=== PATIENT | female | born 1940 | race Caucasian/White ===

== ENCOUNTER 2020-12-07 16:54 | Inpatient (IN) | payer MEDICARE, BC ==
[~2020-12-07] VITALS: Ht 160 cm; Wt 65.9 kg
[~2020-12-07 16:54] MED LIST: ESCI20TA PO; RALO60TA PO
--- NOTE | 2020-12-07 21:00 | NUR ---
Received a 80 yr old female from [facility] with an admitting diagnosis of left hip fracture/left clavicle fracture. Patient S/P Left hip IM nailing on 12/[address] Vyas. AAOx1-2 Confused and disoriented. Doesnt follow commands, patient redirected. On fall precautions. Patient with bilateral wrist restraints.Patient very restless upon arrival. Trying to pull evangelista catheter. BP 185/82 HR 93 Resp 20 Temp 98 pulse ox 99% on 2L via nasal cannula. Dr Huerta made aware of patient's admission and did the med recon. Hydralazine 25 mg po given as order. Will monitor patient's BP. left hip incision with lizz intact. Patient has bruised noted on left thigh. Kept comfortable. Needs attended. Siderails up for safety.
[2020-12-07] MEDS ORDERED: NITR-104 PO (22:15)
[2020-12-07] MEDS ORDERED: HYDR-3980 PO (22:15)
[2020-12-07] MEDS ORDERED: DIVA250T4 PO (22:15)
[2020-12-07] MEDS ORDERED: MAGN400O6 PO (22:15)
[2020-12-07] MEDS ORDERED: QUET50TA PO (22:15)
[2020-12-07] MEDS ORDERED: ACET-2154 PO (22:15)
[2020-12-07] MEDS ORDERED: LEVO25TA9 PO (22:15)
[2020-12-07] MEDS ORDERED: ENOX40DI SQ (22:15)
[2020-12-07] MEDS ORDERED: MAG355OR18 PO (22:15)
[2020-12-07] MEDS ORDERED: METO-358 PO (22:15)
[2020-12-07] MEDS ORDERED: LACT-246 PO (22:15)
[2020-12-07] MEDS ORDERED: CHOL10002 PO (22:15)
[2020-12-07] MEDS ORDERED: HYDROCODONE/APAP 10-325 MG TABLET PO PRN (23:00)
[2020-12-07] MEDS ORDERED: ACETAMINOPHEN 325 MG TABLET PO PRN (23:00)
[2020-12-07 23:19] VITALS: BP 185/82
[2020-12-07] MEDS ORDERED: hydrALAZINE HCL 25 MG TABLET PO ONE (23:30)
[2020-12-07] MEDS ORDERED: hydrALAZINE HCL 25 MG TABLET PO SCH (23:30)
[2020-12-08 04:22] VITALS: BP 126/81
--- NOTE | 2020-12-08 06:36 | NUR ---
End of shift notes: Slept well during the night. No acute distress noted. Bilateral wrists restraints intact, patient confused. Incontinent of BM x1 Kept clean and dry. Latest BP 125/62 Needs attended. Fall precautions maintained. Siderails up for safety.
[2020-12-08 08:00] VITALS: BP 150/60
[2020-12-08] MEDS: NITROFURANTOIN/NITROFURAN MAC 100 MG CAPSULE PO SCH ×2 (08:12→20:21)
[2020-12-08] MEDS: CHOLECALCIFEROL 1,000 UNIT TABLET PO SCH (08:12)
[2020-12-08] MEDS: QUETIAPINE FUMARATE 25 MG TABLET PO SCH ×2 (08:12→17:46)
[2020-12-08] MEDS: LEVOTHYROXINE SODIUM 25 MCG TABLET PO SCH (08:13)
[2020-12-08] MEDS: DIVALPROEX 250 MG TABLET.DR PO SCH ×2 (08:13→17:46)
[2020-12-08] MEDS: ENOXAPARIN SODIUM 40 MG/0.4 ML DISP.SYRIN SQ SCH (08:14)
[2020-12-08] MEDS: METOPROLOL SUCCINATE XL 50 MG TAB.SR.24H PO SCH ×2 (08:17→17:47)
--- NOTE | 2020-12-08 10:13 | NUR ---
Discontinued acute medical restraint, will continue to monitor
--- NOTE | 2020-12-08 14:57 | NUR ---
INTERDISCIPLINARY TEAM CONFERENCE
[2020-12-08 16:16] VITALS: BP 125/88
[2020-12-08] MEDS: ACETAMINOPHEN 325 MG TABLET PO SCH (17:46)
--- NOTE | 2020-12-08 18:03 | NUR ---
evangelista catheter discontinued as ordered by dr east, patient is in bed, calm, comfortable, no behavior issues noted, left leg incision site is dry and clean, changed dressing, no drainage noted, patient left thigh is purplish discolored, left arm is in sling, kept comfortable.
[2020-12-08 20:04] VITALS: BP 101/58
--- NOTE | 2020-12-08 20:58 | NUR ---
Awake alert and oriented x1-2 Confused and disoriented. VSS. Needs attended. Patient incontinent of urine, Kept clean and dry. All due meds given without difficulty.No distress noted. Will monitor patient.
[2020-12-09 04:30] VITALS: BP 141/73
--- NOTE | 2020-12-09 05:31 | NUR ---
End of shift notes: Slept well at long intervals. Patient incontinent pf urine. Kept clean and dry. No signs of agitation or restlessness. Bed alarm on. Will monitor patient. On continous 2L via nasal cannula. pulse 0x 97%. Kept comfortable.
[2020-12-09 07:44] VITALS: BP 126/83
[2020-12-09] MEDS: METOPROLOL SUCCINATE XL 50 MG TAB.SR.24H PO SCH ×2 (08:31→16:30)
[2020-12-09] MEDS: DIVALPROEX 250 MG TABLET.DR PO SCH (08:32)
[2020-12-09] MEDS: CHOLECALCIFEROL 1,000 UNIT TABLET PO SCH (08:32)
[2020-12-09] MEDS: QUETIAPINE FUMARATE 25 MG TABLET PO SCH ×2 (08:32→16:29)
[2020-12-09] MEDS: NITROFURANTOIN/NITROFURAN MAC 100 MG CAPSULE PO SCH ×2 (08:32→21:04)
[2020-12-09] MEDS: LEVOTHYROXINE SODIUM 25 MCG TABLET PO SCH (08:32)
[2020-12-09] MEDS: ACETAMINOPHEN 325 MG TABLET PO SCH ×3 (08:32→16:29)
[2020-12-09] MEDS: ENOXAPARIN SODIUM 40 MG/0.4 ML DISP.SYRIN SQ SCH (08:33)
[2020-12-09 15:31] VITALS: BP 121/74
[2020-12-09] MEDS ORDERED: VALPROIC ACID 250 MG/5 ML LIQUID UDC PO SCH (17:01)
[2020-12-09] MEDS: VALPROIC ACID 250 MG/5 ML LIQUID UDC PO SCH (17:10)
--- NOTE | 2020-12-09 18:10 | NUR ---
Patient alert, oriented to self, not in any form of distress. Patient tolerates room air with 97% oxygen saturation. Due medications administered and tolerated well. Needs anticipated and met. Patient is incontinent of urine, kept clean and comfortable. Turned and reposition every 2 hours. Safety measures maintained. Call light and frequently used items placed within patient's reach.
[2020-12-09 20:29] VITALS: BP 134/78
[2020-12-10 04:00] VITALS: BP 135/71
--- NOTE | 2020-12-10 04:00 | NUR ---
Received patient in bed, asleep, sleeping soundly. No facial grimacing observed. Slept real well until around 0100 then intermittent sleep thereafter. Received due medications, tolerated well. Good pericare provided. Turned and repositioned. Kept patient warm, dry, and comfortable. Fall and safety precautions observed. Will continue to monitor patient and anticipate needs.
[2020-12-10 08:00] VITALS: BP 123/52
[2020-12-10] MEDS: VALPROIC ACID 250 MG/5 ML LIQUID UDC PO SCH ×2 (08:48→16:30)
[2020-12-10] MEDS: ACETAMINOPHEN 325 MG TABLET PO SCH ×3 (08:49→16:32)
[2020-12-10] MEDS: QUETIAPINE FUMARATE 25 MG TABLET PO SCH ×2 (08:50→16:32)
[2020-12-10] MEDS: CHOLECALCIFEROL 1,000 UNIT TABLET PO SCH (08:50)
[2020-12-10] MEDS: LEVOTHYROXINE SODIUM 25 MCG TABLET PO SCH (08:50)
[2020-12-10] MEDS: NITROFURANTOIN/NITROFURAN MAC 100 MG CAPSULE PO SCH ×2 (08:50→20:32)
[2020-12-10] MEDS: METOPROLOL SUCCINATE XL 50 MG TAB.SR.24H PO SCH ×2 (08:50→16:32)
[2020-12-10] MEDS: ENOXAPARIN SODIUM 40 MG/0.4 ML DISP.SYRIN SQ SCH (08:51)
--- NOTE | 2020-12-10 15:39 | NUR ---
patient kept calm and comfortable, turned and repositioned while in bed, participated with PT, OT services, however patient participates poorly due to her cognitive deficit, unable to follow commands, heels floated while in bed, no new skin issues, incision site is clean and dry, dressing intact. no distress noted, saturating well at room air.
[2020-12-10 16:00] VITALS: BP 144/74
--- NOTE | 2020-12-10 16:15 | NUR ---
INDIVIDUALIZED PLAN OF CARE
[2020-12-10 20:00] VITALS: BP 126/77
[2020-12-11 04:00] VITALS: BP 132/73
[2020-12-11 08:17] VITALS: BP 145/87
[2020-12-11] MEDS: VALPROIC ACID 250 MG/5 ML LIQUID UDC PO SCH ×2 (08:49→17:24)
[2020-12-11] MEDS: ACETAMINOPHEN 325 MG TABLET PO SCH ×3 (08:50→17:27)
[2020-12-11] MEDS: NITROFURANTOIN/NITROFURAN MAC 100 MG CAPSULE PO SCH ×2 (08:50→20:26)
[2020-12-11] MEDS: LEVOTHYROXINE SODIUM 25 MCG TABLET PO SCH (08:50)
[2020-12-11] MEDS: QUETIAPINE FUMARATE 25 MG TABLET PO SCH ×2 (08:50→17:25)
[2020-12-11] MEDS: CHOLECALCIFEROL 1,000 UNIT TABLET PO SCH (08:51)
[2020-12-11] MEDS: METOPROLOL SUCCINATE XL 50 MG TAB.SR.24H PO SCH ×2 (08:51→17:27)
[2020-12-11] MEDS: ENOXAPARIN SODIUM 40 MG/0.4 ML DISP.SYRIN SQ SCH (08:51)
[2020-12-11 16:00] VITALS: BP 114/63
--- NOTE | 2020-12-11 19:12 | NUR ---
No significant changes during shift. No signs of distress. Monitored for safety. Comfort measures given. Compliant with medications. Participated with Physical and Occupational Therapy. Will endorse to incoming shift.
[2020-12-11 19:50] VITALS: BP 118/70
--- NOTE | 2020-12-11 22:06 | NUR ---
Patient in bed asleep easily arousable .No s/s of distress noted .On RA.Denies pain .No facial grimaces of pain or discomfort .S/p left hip IM nailing . Surgical site with dressing intact. Clean and dry.Incontinent to both B&B.Patient on ATB therapy for UTI.No a/r noted . Changed and repositioned patient gently.Will continue to monitor.
[2020-12-12 04:25] VITALS: BP 130/88
[2020-12-12 07:48] VITALS: BP 133/76
[2020-12-12] MEDS: NITROFURANTOIN/NITROFURAN MAC 100 MG CAPSULE PO SCH ×2 (08:53→20:33)
[2020-12-12] MEDS: VALPROIC ACID 250 MG/5 ML LIQUID UDC PO SCH ×2 (08:53→17:47)
[2020-12-12] MEDS: CHOLECALCIFEROL 1,000 UNIT TABLET PO SCH (08:53)
[2020-12-12] MEDS: LEVOTHYROXINE SODIUM 25 MCG TABLET PO SCH (08:54)
[2020-12-12] MEDS: METOPROLOL SUCCINATE XL 50 MG TAB.SR.24H PO SCH ×2 (08:54→17:48)
[2020-12-12] MEDS: ACETAMINOPHEN 325 MG TABLET PO SCH ×3 (08:54→17:48)
[2020-12-12] MEDS: QUETIAPINE FUMARATE 25 MG TABLET PO SCH ×2 (08:54→17:48)
[2020-12-12] MEDS: ENOXAPARIN SODIUM 40 MG/0.4 ML DISP.SYRIN SQ SCH (08:57)
--- NOTE | 2020-12-12 09:15 | NUR ---
Received pt in bed, awake, oriented to self. No s/s of acute distress. Pt on RA, O2 saturation 98%. VSS. Due medications given per order, pt adherent, no a/r noted. L hip dressing noted, C/D/I. Pt kept clean and dry, gently repositioned, both heels offloaded. Safety measures and fall precautions in place. Call light and belongings within reach. Will continue to monitor.
[2020-12-12] MEDS ORDERED: hydrALAZINE HCL 25 MG TABLET PO PRN (10:01)
[2020-12-12] MEDS: RALOXIFENE HCL 60 MG TABLET PO SCH (13:20)
[2020-12-12] MEDS: Z GUARD REMEDY PASTE 57 GM TUBE TOP PRN (13:21)
--- NOTE | 2020-12-12 14:50 | NUR ---
Pt returned from physical therapy, notified by TICKET MACHINE OPERATOR at 1420 of decreased BP 68/36. Placed pt in Trendelenburg position, rechecked BP, 58/31. Message left with MD. Other VS: RR 18, HR 80, SpO2 96% RA, temperature 98.0. BP rechecked at 1430, 132/77, HR 82. HOB elevated, encouraged oral hydration, pt adherent. At 1445 BP checked again, 130/74 with HR of 82. O2 saturation 96% RA. Will monitor closely.
[2020-12-12 15:36] VITALS: BP 130/74
--- NOTE | 2020-12-12 18:56 | NUR ---
EOSS: Pt in bed, awake, watching TV. No acute distress noted, no SOB. O2 sat 96% on RA. VSS at this time. Denies pain, no facial grimace noted. Due medications administered per order, no a/r noted. L hip and leg dressing C/D/I. Pt kept clean and dry throughout shift. All needs attended to. Call light and belongings within reach. Safety measures and fall precautions maintained. Will endorse care to track supervisor.
[2020-12-12 20:38] VITALS: BP 114/72
[2020-12-12] MEDS: HYDROCODONE/APAP 5-325MG TABLET PO PRN (23:11)
[2020-12-13 04:25] VITALS: BP 144/72
--- NOTE | 2020-12-13 06:41 | NUR ---
End of Shift: Patient is AO to self slightly confused but cooperative. No acute distress noted, O2 sat 97% on RA. VSS at this time. Patient experienced pain during repositioning, admin PRN pain meds. Due medications given and tolerated well. L hip and leg dressing C/D/I. Pt kept clean & dry throughout shift. All needs attended to. Call light and belongings within reach. Safety measures and fall precautions maintained. Will endorse to the AM shift nurse.
[2020-12-13 08:15] VITALS: BP 129/61
[2020-12-13] MEDS: LEVOTHYROXINE SODIUM 25 MCG TABLET PO SCH (08:40)
[2020-12-13] MEDS: CHOLECALCIFEROL 1,000 UNIT TABLET PO SCH (08:40)
[2020-12-13] MEDS: METOPROLOL SUCCINATE XL 50 MG TAB.SR.24H PO SCH ×2 (08:41→16:50)
[2020-12-13] MEDS: HYDROCODONE/APAP 5-325MG TABLET PO PRN (08:41)
[2020-12-13] MEDS: ACETAMINOPHEN 325 MG TABLET PO SCH ×3 (08:42→16:50)
[2020-12-13] MEDS: QUETIAPINE FUMARATE 25 MG TABLET PO SCH ×2 (08:42→16:49)
[2020-12-13] MEDS: NITROFURANTOIN/NITROFURAN MAC 100 MG CAPSULE PO SCH ×2 (08:42→20:37)
[2020-12-13] MEDS: ENOXAPARIN SODIUM 40 MG/0.4 ML DISP.SYRIN SQ SCH (08:42)
[2020-12-13] MEDS: VALPROIC ACID 250 MG/5 ML LIQUID UDC PO SCH ×2 (08:42→16:50)
[2020-12-13] MEDS: RALOXIFENE HCL 60 MG TABLET PO SCH (08:55)
[2020-12-13 15:12] VITALS: BP 103/55
[2020-12-13 16:52] VITALS: BP 111/66
--- NOTE | 2020-12-13 18:33 | NUR ---
Handoff from Carla Paul RN. Paulo Barahona, NIKHIL Addendum: 12/13/20 at 1835 by [facility] RICHIE RN late entry [id number]
--- NOTE | 2020-12-13 19:35 | NUR ---
Handoff with NIKHIL Perera. Paulo Barahona RN
[2020-12-13 20:28] VITALS: BP 105/57
--- NOTE | 2020-12-13 21:46 | NUR ---
AAOx1-2 Confused and disoriented. Admitted for a left clavicle fracture and left hip fracture secondary to a fall. Patient S/P left hip IM nailing. Dressing clean dry and intact. Patient has a left arm sling. (+) pulses, good circulation, no numbness, no tingling on LUE. Tolerated po meds well.Will monitor patient. Kept comfortable. Fall precautions maintained. Siderails up for safety. VSS.
[2020-12-14 04:32] VITALS: BP 133/84
[2020-12-14 06:49] LABS: BASOPHILS # (AUTO) 0.1 K/uL (0.0-8.0); BASOPHILS % (AUTO) 0.8 % (0.0-2.0); EOSINOPHILS # (AUTO) 0.6 K/uL (0.0-0.7); EOSINOPHILS % (AUTO) 7.6 % (0.0-7.0); HEMATOCRIT 35.4 % (31.2-41.9); HEMOGLOBIN 11.6 g/dL (10.9-14.3); LYMPHOCYTES # (AUTO) 1.1 K/uL (20.0-40.0); LYMPHOCYTES % (AUTO) 14.8 % (20.5-51.5); MEAN CORPUSCULAR HGB CONC 33 g/dL (32.3-35.6); MEAN CORPUSCULAR VOLUME 100.6 fL (75.5-95.3); MONOCYTES # (AUTO) 0.7 K/uL (2.0-10.0); MONOCYTES % (AUTO) 9.2 % (0.0-11.0); NEUTROPHILS # (AUTO) 5.2 K/uL (1.8-8.9); NEUTROPHILS % (AUTO) 67.6 % (38.5-71.5); PLATELET COUNT (AUTO) 362 K/uL (179-408); RED BLOOD CELL COUNT(AUTO) 3.52 MIL/uL (3.63-4.92); WHITE BLOOD COUNT (AUTO) 7.7 K/uL (3.8-11.8)
[2020-12-14 07:11] LABS: MAGNESIUM 2.4 mg/dL (1.8-2.4); PHOSPHOROUS 2.9 mg/dL (2.5-4.9); POTASSIUM 4.4 mmol/L (3.5-5.1)
[2020-12-14 07:53] VITALS: BP 144/73
[2020-12-14] MEDS: ACETAMINOPHEN 325 MG TABLET PO SCH ×3 (08:46→17:38)
[2020-12-14] MEDS: VALPROIC ACID 250 MG/5 ML LIQUID UDC PO SCH ×2 (08:46→17:38)
[2020-12-14] MEDS: RALOXIFENE HCL 60 MG TABLET PO SCH (08:46)
[2020-12-14] MEDS: NITROFURANTOIN/NITROFURAN MAC 100 MG CAPSULE PO SCH (08:46)
[2020-12-14] MEDS: CHOLECALCIFEROL 1,000 UNIT TABLET PO SCH (08:47)
[2020-12-14] MEDS: QUETIAPINE FUMARATE 25 MG TABLET PO SCH ×2 (08:47→17:38)
[2020-12-14] MEDS: METOPROLOL SUCCINATE XL 50 MG TAB.SR.24H PO SCH ×2 (08:47→17:00)
[2020-12-14] MEDS: LEVOTHYROXINE SODIUM 25 MCG TABLET PO SCH (08:48)
[2020-12-14] MEDS: ENOXAPARIN SODIUM 40 MG/0.4 ML DISP.SYRIN SQ SCH (08:48)
[2020-12-14] MEDS: Z GUARD REMEDY PASTE 57 GM TUBE TOP PRN (08:49)
--- NOTE | 2020-12-14 10:00 | NUR ---
Received pt in bed, awake, oriented to self. No s/s of acute distress. Pt on RA, O2 saturation 100%. Due medications given per order, no a/r noted. L hip dressing noted with scant serosanguineous drainage, area cleaned and dried, dressing changed. Minimal redness noted on skin where previous dressing adhesive was applied, area cleaned and dried, kept free of adhesive. Pt kept clean and dry, gently repositioned. Safety measures and fall precautions in place. Call light and belongings within reach. Will continue to monitor.
[2020-12-14 15:20] VITALS: BP 113/62
[2020-12-14] MEDS: ENSURE ENLIVE (VAN) 240 ML LIQUID PO SCH (17:38)
--- NOTE | 2020-12-14 18:52 | NUR ---
EOSS: Pt in bed, awake, watching TV, smiling at this time. No acute distress noted, no SOB. O2 sat 97% on RA. Denies pain at this time. Pt tolerated meals and fluids well. L hip and leg dressing C/D/I. Pt kept clean and dry, gently repositioned during shift. All needs attended to. Call light and belongings within reach. Safety measures and fall precautions maintained. Will endorse care to night supervisor nurse.
[2020-12-14 20:20] VITALS: BP 129/66
--- NOTE | 2020-12-14 21:45 | NUR ---
awake alert and oriented x1-2 Confused and disoriented. VSS. Left arm sling intact. Left hip dressing clean dry and intact. Denies any pain at this time. Will monitor patient. Incontinent of bowel and bladder. Kept clean and dry. No acute distress noted. All needs attended.
[2020-12-15 04:44] VITALS: BP 130/61
--- NOTE | 2020-12-15 06:57 | NUR ---
End of shift notes: Awake and alert. VSS Needs attended. Incontinent of urine x2. Kept clean and dry No complaints presented during shift. Fall precautions maintained.
[2020-12-15 08:00] VITALS: BP 130/55
[2020-12-15] MEDS: RALOXIFENE HCL 60 MG TABLET PO SCH (09:12)
[2020-12-15] MEDS: QUETIAPINE FUMARATE 25 MG TABLET PO SCH ×2 (09:13→17:37)
[2020-12-15] MEDS: ACETAMINOPHEN 325 MG TABLET PO SCH ×3 (09:13→17:37)
[2020-12-15] MEDS: LEVOTHYROXINE SODIUM 25 MCG TABLET PO SCH (09:13)
[2020-12-15] MEDS: CHOLECALCIFEROL 1,000 UNIT TABLET PO SCH (09:13)
[2020-12-15] MEDS: VALPROIC ACID 250 MG/5 ML LIQUID UDC PO SCH ×2 (09:14→17:36)
[2020-12-15] MEDS: ENSURE ENLIVE (VAN) 240 ML LIQUID PO SCH ×2 (09:14→17:37)
[2020-12-15] MEDS: METOPROLOL SUCCINATE XL 50 MG TAB.SR.24H PO SCH ×2 (09:14→17:47)
[2020-12-15] MEDS: ENOXAPARIN SODIUM 40 MG/0.4 ML DISP.SYRIN SQ SCH (09:52)
--- NOTE | 2020-12-15 11:34 | NUR ---
WOUND CARE CONSULT: PT SEEN ON REQUEST OF RN FOR SKIN ASSESSMENT. PT PRESENTS WITH LEFT THIGH INCISIONS X 3 (CLOSED WITH CESAR), PRESENT ON ADMISSION. SOME DISCOLORATION AND EDEMA NOTED AROUND INCISIONS. RECOMMENDATIONS MADE FOR SKIN PROTECTION. DISCUSSED WITH NURSING STAFF. CORPORATE BANKING OFFICER CHECKING WITH SURGEON/MD TO FIND OUT WHEN CESAR WILL BE REMOVED. PT IS INCONTINENT. MD IN AGREEMENT WITH PLAN OF CARE. Addendum: 12/15/20 at 1136 by KANE ROBERTS RN Amended: Links added.
--- NOTE | 2020-12-15 12:36 | NUR ---
INTERDISCIPLINARY TEAM CONFERENCE
[2020-12-15 16:21] VITALS: BP 103/59
--- NOTE | 2020-12-15 19:30 | NUR ---
EOSS: Pt in bed, awake, watching TV, oriented to self. No acute distress noted, no SOB. O2 sat 96% on RA. Due medications given per order, no a/r noted. Pt tolerated meals and fluids well. Discoloration and edema noted around L hip and leg incisions, L hip and leg lizz removed per order, steri strips applied per order. Pt kept clean and dry, gently repositioned during shift. All needs attended to. Call light and belongings within reach. Safety measures and fall precautions maintained. Will endorse care to night clerk auditor nurse.
--- NOTE | 2020-12-15 19:30 | NUR ---
Received pt in bed, asleep, easily arousable to name and light touch. Denies any pain at this time. On room air, no s/s of respiratory distress. Safety measures in place, call light within reach. will continue to monitor.
[2020-12-15 20:00] VITALS: BP 113/62
[2020-12-16 04:00] VITALS: BP 101/59
[2020-12-16] MEDS: HYDROCODONE/APAP 5-325MG TABLET PO PRN (04:45)
--- NOTE | 2020-12-16 06:27 | NUR ---
Pt laying in bed, asleep but easily arousable to name and light touch. No s/s of respiratory distress. PRN pain medication given for pain. Incision site on L hip with steri strips, clean and dry, no signs of infection. Safety measures maintained, call light within reach. all needs attended.
[2020-12-16 08:37] VITALS: BP 122/59
[2020-12-16] MEDS: CHOLECALCIFEROL 1,000 UNIT TABLET PO SCH (09:40)
[2020-12-16] MEDS: VALPROIC ACID 250 MG/5 ML LIQUID UDC PO SCH ×2 (09:40→17:27)
[2020-12-16] MEDS: LEVOTHYROXINE SODIUM 25 MCG TABLET PO SCH (09:42)
[2020-12-16] MEDS: ACETAMINOPHEN 325 MG TABLET PO SCH ×3 (09:42→17:27)
[2020-12-16] MEDS: METOPROLOL SUCCINATE XL 50 MG TAB.SR.24H PO SCH ×2 (09:42→17:00)
[2020-12-16] MEDS: QUETIAPINE FUMARATE 25 MG TABLET PO SCH ×2 (09:42→17:27)
[2020-12-16] MEDS: RALOXIFENE HCL 60 MG TABLET PO SCH (09:43)
[2020-12-16] MEDS: ENOXAPARIN SODIUM 40 MG/0.4 ML DISP.SYRIN SQ SCH (09:43)
[2020-12-16] MEDS: ENSURE ENLIVE (VAN) 240 ML LIQUID PO SCH ×2 (09:53→17:28)
[2020-12-16 15:54] VITALS: BP 102/58
--- NOTE | 2020-12-16 19:30 | NUR ---
Received pt in bed, awake and verbally responsive. Denies any pain at this time. On room air, no s/s of respiratory distress. Positioned comfortably in bed, safety measures in place, call light within reach. will continue to monitor.
[2020-12-16 20:00] VITALS: BP 138/48
[2020-12-17 04:00] VITALS: BP 124/92
--- NOTE | 2020-12-17 05:42 | NUR ---
Pt laying in bed, awake and smiling, verbally responsive. no s/s of respiratory distress. Incision site on L hip with steri strips, clean and dry, noted bruises on the surrounding area but no signs of infection. Safety measures maintained, call light within reach. all needs attended.
[2020-12-17 08:00] VITALS: BP 120/84
[2020-12-17] MEDS: HYDROCODONE/APAP 5-325MG TABLET PO PRN ×2 (08:23→15:14)
[2020-12-17] MEDS: VALPROIC ACID 250 MG/5 ML LIQUID UDC PO SCH ×2 (08:23→18:03)
[2020-12-17] MEDS: LEVOTHYROXINE SODIUM 25 MCG TABLET PO SCH (08:24)
[2020-12-17] MEDS: QUETIAPINE FUMARATE 25 MG TABLET PO SCH ×2 (08:24→17:00)
[2020-12-17] MEDS: METOPROLOL SUCCINATE XL 50 MG TAB.SR.24H PO SCH ×2 (08:24→17:00)
[2020-12-17] MEDS: CHOLECALCIFEROL 1,000 UNIT TABLET PO SCH (08:24)
[2020-12-17] MEDS: RALOXIFENE HCL 60 MG TABLET PO SCH (08:26)
[2020-12-17] MEDS: ENSURE ENLIVE (VAN) 240 ML LIQUID PO SCH ×2 (08:26→18:04)
[2020-12-17] MEDS: ACETAMINOPHEN 325 MG TABLET PO SCH ×3 (08:28→18:03)
[2020-12-17] MEDS: ENOXAPARIN SODIUM 40 MG/0.4 ML DISP.SYRIN SQ SCH (08:29)
[2020-12-17 16:14] VITALS: BP 98/58
[2020-12-17 20:35] VITALS: BP 109/59
--- NOTE | 2020-12-17 22:00 | NUR ---
Awake alert and oriented x1. Confused and disoriented. VSS. Condition unchanged. Left arm sling on at all times. Left hip dressing intact. Turned to sides. Incontinent of urine x2. Kept clean and dry. Siderails up for safety. No distress noted.
[2020-12-18 04:25] VITALS: BP 129/51
--- NOTE | 2020-12-18 06:30 | NUR ---
End of shift notes: Uneventful night. No acute distress noted. Patient incontinent of urine x2. Kept clean and dry. Left hip incision clean and dry, no more dressing. Will monitor patient. Fall precautions maintained. Left arm sling intact. No acute distress noted.
[2020-12-18 07:43] VITALS: BP 129/63
[2020-12-18] MEDS: QUETIAPINE FUMARATE 25 MG TABLET PO SCH ×2 (08:13→16:35)
[2020-12-18] MEDS: CHOLECALCIFEROL 1,000 UNIT TABLET PO SCH (08:13)
[2020-12-18] MEDS: LEVOTHYROXINE SODIUM 25 MCG TABLET PO SCH (08:13)
[2020-12-18] MEDS: ACETAMINOPHEN 325 MG TABLET PO SCH ×3 (08:14→16:37)
[2020-12-18] MEDS: METOPROLOL SUCCINATE XL 50 MG TAB.SR.24H PO SCH ×2 (08:14→16:36)
[2020-12-18] MEDS: VALPROIC ACID 250 MG/5 ML LIQUID UDC PO SCH ×2 (08:15→16:35)
[2020-12-18] MEDS: ENSURE ENLIVE (VAN) 240 ML LIQUID PO SCH ×2 (08:15→16:35)
[2020-12-18] MEDS: ENOXAPARIN SODIUM 40 MG/0.4 ML DISP.SYRIN SQ SCH (08:16)
[2020-12-18] MEDS: RALOXIFENE HCL 60 MG TABLET PO SCH (08:17)
[2020-12-18 10:00] VITALS: BP_SYST 101; BP_SYST 125; BP_DIAS 44; BP_DIAS 60
[2020-12-18 16:44] VITALS: BP 118/79
[2020-12-18 20:42] VITALS: BP 117/59
--- NOTE | 2020-12-18 21:05 | NUR ---
Received pt sleeping comfortably in bed. Aroused easily to verbal stimuli. Alert and oriented x1. Noted pt to be confused. No acute distress noted. Culp Mccall pain scale 0. Pt appears to be calm and no signs of pain noted. Turned and repositioned. Both heels offloaded. Safety measures maintained. Call light and personal items within reach. Will continue to monitor.
[2020-12-19 04:13] VITALS: BP 135/50
[2020-12-19 08:00] VITALS: BP 118/53
[2020-12-19] MEDS: VALPROIC ACID 250 MG/5 ML LIQUID UDC PO SCH ×2 (09:51→17:47)
[2020-12-19] MEDS: LEVOTHYROXINE SODIUM 25 MCG TABLET PO SCH (09:51)
[2020-12-19] MEDS: CHOLECALCIFEROL 1,000 UNIT TABLET PO SCH (09:51)
[2020-12-19] MEDS: QUETIAPINE FUMARATE 25 MG TABLET PO SCH ×2 (09:52→17:47)
[2020-12-19] MEDS: RALOXIFENE HCL 60 MG TABLET PO SCH (09:52)
[2020-12-19] MEDS: ACETAMINOPHEN 325 MG TABLET PO SCH ×3 (09:52→17:47)
[2020-12-19] MEDS: METOPROLOL SUCCINATE XL 50 MG TAB.SR.24H PO SCH ×2 (09:52→17:47)
[2020-12-19] MEDS: ENOXAPARIN SODIUM 40 MG/0.4 ML DISP.SYRIN SQ SCH (09:53)
[2020-12-19] MEDS: ENSURE ENLIVE (VAN) 240 ML LIQUID PO SCH ×2 (09:54→17:48)
[2020-12-19] MEDS: Z GUARD REMEDY PASTE 57 GM TUBE TOP PRN (09:55)
[2020-12-19] MEDS ORDERED: BISACODYL 5 MG TABLET.DR PO PRN (12:15)
[2020-12-19 16:24] VITALS: BP 113/54
--- NOTE | 2020-12-19 18:58 | NUR ---
EOSS: Pt in bed, watching TV, oriented to self. No acute distress noted. VSS at this time. No s/s of pain with FLACC scale. Due medications given per order, no a/r noted. Pt tolerated meals and fluids well. Pt had large BM this afternoon. Pt kept clean and dry, gently repositioned during shift. Both heals offloaded. All needs attended to. Call light and belongings within reach. Safety measures and fall precautions maintained. Will endorse care to court assistant nurse.
[2020-12-19 20:06] VITALS: BP 103/59
--- NOTE | 2020-12-19 22:36 | NUR ---
Received patient sleeping comfortably in bed. Aroused easily to verbal stimuli. Alert and oriented x1. No acute distress noted. FLACC 0, Patient noted to be calm and no signs of pain noted. Turned and repositioned. Left Hip Incision intact clean and dry, Both heels kept offloaded. kept clean and dry. Safety measures maintained. Call light and personal items within reach. Will continue to monitor.
[2020-12-20 04:09] VITALS: BP 124/68
--- NOTE | 2020-12-20 05:04 | NUR ---
Patient AOx1 slept well throughout night,easily arousable Patient incontinent of urine x2. Kept clean and dry. Left hip incision clean and dry, no redness noted no s/s of infection noted,Fall precautions maintained.turned and repositioned, Left arm sling inplace, No acute distress noted. we endorse accordingly to oncoming shift.
[2020-12-20 07:16] LABS: BASOPHILS # (AUTO) 0.1 K/uL (0.0-8.0); BASOPHILS % (AUTO) 0.9 % (0.0-2.0); EOSINOPHILS # (AUTO) 0.5 K/uL (0.0-0.7); EOSINOPHILS % (AUTO) 7.6 % (0.0-7.0); HEMATOCRIT 34.9 % (31.2-41.9); HEMOGLOBIN 11.4 g/dL (10.9-14.3); LYMPHOCYTES # (AUTO) 1.3 K/uL (20.0-40.0); LYMPHOCYTES % (AUTO) 19.8 % (20.5-51.5); MEAN CORPUSCULAR HGB CONC 33 g/dL (32.3-35.6); MEAN CORPUSCULAR VOLUME 100.8 fL (75.5-95.3); MONOCYTES # (AUTO) 0.6 K/uL (2.0-10.0); MONOCYTES % (AUTO) 8.8 % (0.0-11.0); NEUTROPHILS # (AUTO) 4.2 K/uL (1.8-8.9); NEUTROPHILS % (AUTO) 62.9 % (38.5-71.5); PLATELET COUNT (AUTO) 369 K/uL (179-408); RED BLOOD CELL COUNT(AUTO) 3.46 MIL/uL (3.63-4.92); WHITE BLOOD COUNT (AUTO) 6.7 K/uL (3.8-11.8)
[2020-12-20 08:10] LABS: BILIRUBIN,TOTAL 0.6 mg/dL (0.2-1.0); CREATININE 0.9 mg/dL (0.6-1.3); PHOSPHOROUS 2.8 mg/dL (2.5-4.9); POTASSIUM 4.3 mmol/L (3.5-5.1); TOTAL PROTEIN, SERUM 6.3 g/dL (6.4-8.2)
[2020-12-20 08:15] VITALS: BP 127/84
[2020-12-20 08:30] LABS: MAGNESIUM 2.4 mg/dL (1.8-2.4)
[2020-12-20] MEDS: LEVOTHYROXINE SODIUM 25 MCG TABLET PO SCH (08:53)
[2020-12-20] MEDS: ACETAMINOPHEN 325 MG TABLET PO SCH ×3 (08:53→17:15)
[2020-12-20] MEDS: QUETIAPINE FUMARATE 25 MG TABLET PO SCH ×2 (08:54→17:15)
[2020-12-20] MEDS: RALOXIFENE HCL 60 MG TABLET PO SCH (08:55)
[2020-12-20] MEDS: CHOLECALCIFEROL 1,000 UNIT TABLET PO SCH (08:55)
[2020-12-20] MEDS: METOPROLOL SUCCINATE XL 50 MG TAB.SR.24H PO SCH ×2 (08:56→17:00)
[2020-12-20] MEDS: VALPROIC ACID 250 MG/5 ML LIQUID UDC PO SCH ×2 (08:56→17:15)
[2020-12-20] MEDS: ENOXAPARIN SODIUM 40 MG/0.4 ML DISP.SYRIN SQ SCH (08:57)
[2020-12-20] MEDS: ENSURE ENLIVE (VAN) 240 ML LIQUID PO SCH ×2 (08:57→17:20)
[2020-12-20 09:11] LABS: THYROID STIMULATING HORMONE 1.09 mIU/mL (0.358-3.740)
[2020-12-20 16:37] VITALS: BP 106/52
[2020-12-20 20:04] VITALS: BP 97/52
--- NOTE | 2020-12-20 22:05 | NUR ---
Received patient resting in bed. Aroused easily to verbal stimuli. Alert and oriented to self No acute distress noted. FLACC pain scale 0. Pt appears to be calm and no signs of pain noted. Turned and repositioned. Both heels offloaded. Safety measures maintained. Call light and personal items within reach. Will continue to monitor.
[2020-12-21] MEDS: HYDROCODONE/APAP 5-325MG TABLET PO PRN (02:16)
[2020-12-21 04:43] VITALS: BP 131/74
[2020-12-21 08:00] VITALS: BP 108/42
[2020-12-21] MEDS: ACETAMINOPHEN 325 MG TABLET PO SCH ×3 (08:24→17:06)
[2020-12-21] MEDS: CHOLECALCIFEROL 1,000 UNIT TABLET PO SCH (08:25)
[2020-12-21] MEDS: RALOXIFENE HCL 60 MG TABLET PO SCH (08:25)
[2020-12-21] MEDS: QUETIAPINE FUMARATE 25 MG TABLET PO SCH ×2 (08:25→17:06)
[2020-12-21] MEDS: LEVOTHYROXINE SODIUM 25 MCG TABLET PO SCH (08:25)
[2020-12-21] MEDS: ENOXAPARIN SODIUM 40 MG/0.4 ML DISP.SYRIN SQ SCH (08:26)
[2020-12-21] MEDS: ENSURE ENLIVE (VAN) 240 ML LIQUID PO SCH ×2 (08:26→17:07)
[2020-12-21] MEDS: VALPROIC ACID 250 MG/5 ML LIQUID UDC PO SCH ×2 (08:26→17:06)
[2020-12-21] MEDS: METOPROLOL SUCCINATE XL 50 MG TAB.SR.24H PO SCH ×2 (08:27→17:00)
[2020-12-21 16:00] VITALS: BP 105/45
--- NOTE | 2020-12-21 18:45 | NUR ---
Informed Ketan Rivers DNP regarding decreased BP and he said OK to hold metoprolol and then change Metoprolol to 50 mg PO BID. Patient remains alert, oriented to self, calm, not in any form of distress, on room air. No complain of any pain or discomfort. Needs anticipated and met. Safety measures maintained. Call light and frequently used items placed within patient's reach.
[2020-12-21 20:11] VITALS: BP 119/43
--- NOTE | 2020-12-21 22:19 | NUR ---
resting in bed. Alert and oriented x1, self, able to answer simple yes/no questions. No acute distress noted. Culp Mccall pain scale 0. Pt appears to be calm and no signs of pain noted. Turned and repositioned. Both heels offloaded. Safety measures maintained. Call light and personal items within reach. Will continue to monitor.
[2020-12-22 04:45] VITALS: BP 138/60
[2020-12-22 08:00] VITALS: BP 114/69
[2020-12-22] MEDS: CHOLECALCIFEROL 1,000 UNIT TABLET PO SCH (08:38)
[2020-12-22] MEDS: LEVOTHYROXINE SODIUM 25 MCG TABLET PO SCH (08:38)
[2020-12-22] MEDS: VALPROIC ACID 250 MG/5 ML LIQUID UDC PO SCH ×2 (08:38→17:55)
[2020-12-22] MEDS: QUETIAPINE FUMARATE 25 MG TABLET PO SCH ×2 (08:38→17:55)
[2020-12-22] MEDS: ENSURE ENLIVE (VAN) 240 ML LIQUID PO SCH ×2 (08:39→17:55)
[2020-12-22] MEDS: ACETAMINOPHEN 325 MG TABLET PO SCH ×3 (08:39→17:55)
[2020-12-22] MEDS: RALOXIFENE HCL 60 MG TABLET PO SCH (08:39)
[2020-12-22] MEDS: METOPROLOL SUCCINATE XL 50 MG TAB.SR.24H PO SCH ×2 (08:39→17:00)
[2020-12-22] MEDS: ENOXAPARIN SODIUM 40 MG/0.4 ML DISP.SYRIN SQ SCH (08:41)
[2020-12-22 15:47] VITALS: BP 102/44
--- NOTE | 2020-12-22 15:50 | NUR ---
INTERDISCIPLINARY TEAM CONFERENCE
--- NOTE | 2020-12-22 18:54 | NUR ---
EOSS: Pt in bed, watching TV, oriented to self. No acute distress noted. Due medications given per order, no a/r noted. Pt tolerated meals and fluids well. Pt kept clean and dry. All needs attended to. Call light and belongings within reach. Safety measures and fall precautions maintained. Will endorse care to assistant shift supervisor nurse.
[2020-12-22 20:00] VITALS: BP 131/59
--- NOTE | 2020-12-22 21:36 | NUR ---
Awake alert and oriented x1-2 Confused and disoriented. Needs attended. VSS. Kept comfortable. Repositioned for comfort. Turned to sides. Incontinent of bladder and bowel. Kept clean and dry. Left hip incision healing. Patient with left arm sling. Fall precautions maintained. Siderails up for safety. Bed alarm on.
[2020-12-23 04:46] VITALS: BP 118/56
--- NOTE | 2020-12-23 06:24 | NUR ---
End of shift notes: Quiet night. Condition unchanged. AAOx1. Fall precautions maintained. Incontinent of large amount of urine. Kept clean and dry. No distress noted. Left arm sling intact. For xray left hip today. Possible d/c on 12/31.
[2020-12-23 07:32] VITALS: BP 129/65
[2020-12-23] MEDS: VALPROIC ACID 250 MG/5 ML LIQUID UDC PO SCH ×2 (08:46→17:01)
[2020-12-23] MEDS: ENSURE ENLIVE (VAN) 240 ML LIQUID PO SCH ×2 (08:46→17:19)
[2020-12-23] MEDS: QUETIAPINE FUMARATE 25 MG TABLET PO SCH ×2 (08:46→17:01)
[2020-12-23] MEDS: RALOXIFENE HCL 60 MG TABLET PO SCH (08:46)
[2020-12-23] MEDS: CHOLECALCIFEROL 1,000 UNIT TABLET PO SCH (08:46)
[2020-12-23] MEDS: LEVOTHYROXINE SODIUM 25 MCG TABLET PO SCH (08:46)
[2020-12-23] MEDS: ACETAMINOPHEN 325 MG TABLET PO SCH ×3 (08:47→17:01)
[2020-12-23] MEDS: ENOXAPARIN SODIUM 40 MG/0.4 ML DISP.SYRIN SQ SCH (08:48)
[2020-12-23] MEDS: METOPROLOL SUCCINATE XL 50 MG TAB.SR.24H PO SCH ×2 (08:56→17:00)
[2020-12-23 16:00] VITALS: BP 91/60
[2020-12-23 20:00] VITALS: BP 124/68
--- NOTE | 2020-12-23 20:30 | NUR ---
Received pt sleeping comfortably. Aroused easily to verbal stimuli. No acute distress noted. Culp Mccall 0/10, no facial cues for pain. VSS. Turned and repositioned. Both heels offloaded. Sling on left arm in place. Safety measures maintained. Call light and personal items within reach. Will continue to monitor.
[2020-12-24 04:00] VITALS: BP 114/60
[2020-12-24 07:54] VITALS: BP 109/78
[2020-12-24] MEDS: QUETIAPINE FUMARATE 25 MG TABLET PO SCH (08:32)
[2020-12-24] MEDS: VALPROIC ACID 250 MG/5 ML LIQUID UDC PO SCH (08:32)
[2020-12-24] MEDS: ACETAMINOPHEN 325 MG TABLET PO SCH ×2 (08:32→13:00)
[2020-12-24] MEDS: LEVOTHYROXINE SODIUM 25 MCG TABLET PO SCH (08:32)
[2020-12-24 08:33] VITALS: BP 109/78
[2020-12-24] MEDS: ENSURE ENLIVE (VAN) 240 ML LIQUID PO SCH (08:33)
[2020-12-24] MEDS: METOPROLOL SUCCINATE XL 50 MG TAB.SR.24H PO SCH (08:33)
[2020-12-24] MEDS: CHOLECALCIFEROL 1,000 UNIT TABLET PO SCH (08:33)
[2020-12-24] MEDS: RALOXIFENE HCL 60 MG TABLET PO SCH (08:34)
[2020-12-24] MEDS: ENOXAPARIN SODIUM 40 MG/0.4 ML DISP.SYRIN SQ SCH (08:35)
--- NOTE | 2020-12-24 14:00 | NUR ---
Patient discharged to [facility], with trips transportation, accompanied by two assistants and her daughter, patient dressed up in her own clothes, belongings accounted, however no other belongings are found, patient is in stable condition, wheel chair bound, or bedbound,total assist with adls, no skin issues noted, called daughter and left message to call back regarding patient report.
--- NOTE | 2020-12-24 15:46 | NUR ---
INTERDISCIPLINARY TEAM CONFERENCE
--- NOTE | 2020-12-24 16:18 | NUR ---
DAUGHTER TASIA CALLED BACK, MADE HER AWARE ABOUT PATIENT CURRENT STATUS WITH ADLS, SUCH PATIENT NEEDS TOTAL ASSIST WITH ADLS, PER DAUGHTER SHE IS AWARE OF IT, DAUGHTER MADE AWARE ABOUT FOLLOW UP APT WITH DR FORD AND TO TAKE CD WITH TO THE APT, DAUGHTER VERBALIZED UNDERSTANDING OF IT
== END 2020-12-24 15:15 | disposition hospice, home (50) | DRG 559 ==
PROVIDERS: ADMIT Physical Medicine & Rehabilitation Pain Medicine; ATTEND Physical Medicine & Rehabilitation Pain Medicine
DX: S72.142D Displaced intertrochanteric fracture of left femur, subsequent encounter for closed fracture with routine healing (principal); G93.41 Metabolic encephalopathy; E44.0 Moderate protein-calorie malnutrition; N39.0 Urinary tract infection, site not specified; D62 Acute posthemorrhagic anemia; D68.59 Other primary thrombophilia; S42.002D Fracture of unspecified part of left clavicle, subsequent encounter for fracture with routine healing; W19.XXXD Unspecified fall, subsequent encounter; E03.9 Hypothyroidism, unspecified; F03.90 Unspecified dementia, unspecified severity, without behavioral disturbance, psychotic disturbance, mood disturbance, and anxiety; I25.10 Atherosclerotic heart disease of native coronary artery without angina pectoris; I48.91 Unspecified atrial fibrillation; I10 Essential (primary) hypertension; F41.9 Anxiety disorder, unspecified; R79.89 Other specified abnormal findings of blood chemistry; R53.1 Weakness
CPT/HCPCS: 36415; 73000; 73501; 83735; 84100; 84443; 85025; A4663; J1650; J3490